=== PATIENT | female | born 1990 | race Two or more races ===

== ENCOUNTER 2025-04-12 08:30 | Outpatient (RCR) | payer MEDICAID, SELFPAY ==
--- NOTE | 2025-04-11 08:30 | XR_ITS ---
Examination: Nuclear medicine thyroid uptake and scan Date and time: April 11, 2025 0817 hours INDICATIONS: Difficulty swallowing 5 months TECHNIQUE AND FINDINGS: Oral administration 290 uCi I-123 6 hour 24 hour uptake values recorded as well as thyroid scans 6 hour uptake 67.9% normal range 6-24% 24 hour uptake 66.8% normal range 10-36% Homogeneous thyroid uptake on this scan images IMPRESSION: Elevated thyroid uptake values This patient is amenable to I-131 radiopharmaceutical therapy in the radiology department as clinically warranted
== END 2025-04-17 23:59 | disposition home or self-care (01) ==
LOC: SNUC 08:30
PROVIDERS: PCP Physician Assistant Medical; Referring Provider Physician Assistant Medical; Visit Provider Physician Assistant Medical
DX: E04.1 Nontoxic single thyroid nodule (principal)
CPT/HCPCS: 78013; A9516